=== PATIENT | female | born 1970 | race Hispanic/Latino ===

== ENCOUNTER 2021-08-01 11:12 | Emergency (ER) | payer OTHER ==
[~2021-08-01] VITALS: Ht 157.5 cm; Wt 64.4 kg
[2021-08-01] MEDS ORDERED: KETOROLAC TROMETHAMINE 60 MG/2 ML VIAL IM ONE (13:00)
[2021-08-01] MEDS ORDERED: PREDNISONE 20 MG TAB PO ONE (13:00)
[2021-08-01] MEDS ORDERED: PREDNISONE50 MG PO (13:04)
[2021-08-01] MEDS ORDERED: PREDNISONE 20 MG TAB ONE (13:14)
== END 2021-08-01 13:52 | disposition home or self-care (01) ==
LOC: FSED 11:58
DX: M54.16 Radiculopathy, lumbar region (principal)
CPT/HCPCS: 96372; 99282; J1885; J7512

== ENCOUNTER 2022-05-21 17:00 | Emergency (ER) | payer OTHER ==
[~2022-05-21] VITALS: Ht 157.5 cm; Wt 73.7 kg
[~2022-05-21 17:00] MED LIST: PREDNISONE50 MG PO
[2022-05-21] MEDS ORDERED: KETOROLAC TROMETHAMINE 30 MG/ML VIAL IM STA (17:10)
[2022-05-21] MEDS ORDERED: DEXAMETHASONE SOD PHOS INJ 4 MG/ML SDV IM ONE (17:15)
[2022-05-21] MEDS ORDERED: KETOROLAC TROME10 MG PO (17:16)
[2022-05-21] MEDS ORDERED: CYCLOBENZAPRINE5 MG PO (17:17)
[2022-05-21] MEDS ORDERED: KETOROLAC TROMETHAMINE 30 MG/ML VIAL ONE (17:38)
[2022-05-21] MEDS ORDERED: DEXAMETHASONE SOD PHOS INJ 4 MG/ML SDV ONE (17:38)
== END 2022-05-21 17:54 | disposition home or self-care (01) ==
LOC: FSED 17:03
DX: M54.42 Lumbago with sciatica, left side (principal)
CPT/HCPCS: 96372; 99283; J1100; J1885